=== PATIENT | female | born 2000 | race Hispanic/Latino ===

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

== ENCOUNTER 2019-03-09 22:28 | Emergency (ER) | payer OTHER ==
[2019-03-09 22:56] LABS: Bilirubin Negative (Negative); Blood, Urine Negative (Negative); Clarity Clear (Clear); Glucose, Urine (Dipstick) Normal (Negative); Leukocyte 75 Leu/uL (Negative); Nitrite Negative (Negative); Protein, Urine (Dipstick) Negative (Neg-Trace); RBC/HPF 0-3 HPF (0-3); Squamous Epithelial 0-3 HPF (0-3); Urobilinogen Normal mg/dL (Less than 2); WBC/HPF 0-3 HPF (0-3)
[2019-03-09 23:09] LABS: Bacteria/HPF Rare-Few HPF (None Seen)
== END 2019-03-09 23:20 | disposition home or self-care (01) ==
LOC: ERS 22:28
DX: O99.512 Diseases of the respiratory system complicating pregnancy, second trimester (principal); J10.1 Influenza due to other identified influenza virus with other respiratory manifestations; O24.912 Unspecified diabetes mellitus in pregnancy, second trimester; Z3A.14 14 weeks gestation of pregnancy
CPT/HCPCS: 81003; 81015; 87086; 87804; 99283

== ENCOUNTER 2019-04-17 09:20 | Outpatient (CLI) | payer OTHER ==
--- NOTE | 2019-04-17 10:22 | ULT ---
OB ultrasound: HISTORY: Size and dates. FINDINGS: A single live intrauterine gestation is seen with measurements corresponding to an estimated gestatio nal age of 20 weeks 0 days and JOSIAH at 09/04/2019. The estimated weight measures 322 g or 11 ounces (42% by Hadlock criteria). measurements as follows: BPD: 4.50 cm, 19 weeks 5 days HC: 17.68 cm, 20 weeks 2 days AC: 14.70 cm, 20 weeks 0 days FL: 3.17 cm, 19 weeks 6 days The placenta is posteriorly located without evidence of placenta previa. heart rate measures 15 8 beats per minute. Cervical length measures 6 cm. Amniotic fluid appears adequate. Three-vessel cord and four-chamber heart are not satisfactorily visualized. The cord insertion, kidneys, bladder, stomach, lateral ventricles, cerebellum, spine, loss/lips and upper and lower extremities are visualized without definite anomalies. IMPRESSION: Single live IUP of 20 weeks estimated gestational age and JOSIAH at 09/04/2019
== END 2019-04-17 09:21 | disposition home or self-care (01) ==
LOC: BICULT 09:20
PROVIDERS: ATTEND Family Medicine
DX: O09.92 Supervision of high risk pregnancy, unspecified, second trimester (principal); Z3A.20 20 weeks gestation of pregnancy
CPT/HCPCS: 76805

== ENCOUNTER 2019-07-04 17:48 | Day surgery (SDC) | payer OTHER ==
[2019-07-04 18:33] VITALS: BMI 37.9
[2019-07-04 18:39] VITALS: BP 104/56; TEMP 98.8
[2019-07-04] MEDS ORDERED: hydrALAZINE 20 MG/ML VIAL SLOW IVP PRN (18:49)
[2019-07-04 19:37] LABS: Bacteria/HPF None Seen HPF (None Seen); Bilirubin Negative (Negative); Blood, Urine Negative (Negative); Clarity Clear (Clear); Glucose, Urine (Dipstick) Normal (Negative); Leukocyte Negative Leu/uL (Negative); Nitrite Negative (Negative); Protein, Urine (Dipstick) Negative (Neg-Trace); RBC/HPF None Seen HPF (0-3); Squamous Epithelial None Seen HPF (0-3); Urobilinogen Normal mg/dL (Less than 2); WBC/HPF 0-3 HPF (0-3)
[2019-07-04 19:40] LABS: Urine Culture Reflex No No
--- NOTE | 2019-07-04 21:38 | PRG ---
DATE OF SERVICE: 07/04/2019 PRESENTING COMPLAINT: Pinkish urine or vaginal discharge uncertain at 28 weeks. HISTORY OF PRESENT ILLNESS: Ms. Miky Escobar is the 19-year-old 3, para 3, living 1, status post x1, status post vaginal delivery of 28-week twins . No antepartum record available on the unit. She reports several days of pinkish urine. She thinks it is most likely urine, although might be discharge. She denies cramps. She reports active fetus. She called Dr. Carter's office who told her to present to Labor and Delivery for further evaluation. 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 No antepartum record available. PAST MEDICAL HISTORY: Denies. PAST SURGICAL HISTORY: Denies. ALLERGIES: DENIES. MEDICATIONS: vitamins. SOCIAL HISTORY: Denies tobacco, alcohol, or IV drug abuse. FAMILY HISTORY: Noncontributory. REVIEW OF SYSTEMS: Noncontributory. PHYSICAL EXAMINATION: GENERAL: White female, in no acute distress. VITAL SIGNS: Temperature 98.8, pulse 82, respirations 18, blood pressure 122/72. HEENT: Within normal limits. LUNGS: Clear to auscultation bilaterally. HEART: Regular rate and rhythm. ABDOMEN: Soft and nontender. Fundal height 29 cm. FHTs 140s. Vulva without lesions. Vaginal exam deferred. VB-3 collected. Straight catheterization collected. No CVA tenderness noted. EXTREMITIES: Without clubbing, cyanosis, or edema. LABORATORY STUDIES: monitoring is carried out, which revealed no contractions. Positive accelerations, no decelerations. Baseline is 140s to 150s. VB-3 was negative for all tested conditions. Urinalysis was completely unremarkable and clean. IMPRESSION: Pinkish discharge of uncertain etiology. No evidence of infection, labor, or urinary tract infection. PLAN: Reassurance. Follow up with Raul as scheduled in first week of July. Job ID: [id number]
== END 2019-07-04 20:50 | disposition home or self-care (01) ==
LOC: L&D/OP 17:48
PROVIDERS: ATTEND Family Medicine
DX: O99.89 Other specified diseases and conditions complicating pregnancy, childbirth and the puerperium (principal); N89.8 Other specified noninflammatory disorders of vagina; O34.219 Maternal care for unspecified type scar from previous cesarean delivery; O09.293 Supervision of pregnancy with other poor reproductive or obstetric history, third trimester; Z3A.28 28 weeks gestation of pregnancy
CPT/HCPCS: 81001; 87480; 87510; 87660

== ENCOUNTER 2019-08-28 05:23 | Inpatient (IN) | payer OTHER ==
[2019-08-28] MEDS ORDERED: Ondansetron PF 4 MG/2 ML Vial IVP PRN ×3 (05:44→17:14)
[2019-08-28] MEDS ORDERED: Promethazine HCl 25 MG/ML VIAL IM PRN ×2 (05:44→14:51)
[2019-08-28] MEDS ORDERED: hydrALAZINE 20 MG/ML VIAL SLOW IVP PRN ×2 (05:44→17:14)
[2019-08-28 05:58] VITALS: BMI 42.0
[2019-08-28] MEDS ORDERED: CEFAZOLIN 2 GM in Premix Bag 1 BAG IVPB SCH ×2 (06:00→13:30)
[2019-08-28 06:21] LABS: Hemoglobin 10.7 g/dL (12.0-16.0); Mean Corpuscular HGB CONC 31.7 g/dL (32.0-36.0); Mean Corpuscular Hemoglobin 24.8 pg (25.0-35.0); Mean Corpuscular Volume 78.3 fL (78.0-98.0); Mean Platelet Volume 10.7 fL (7.4-10.4); Platelet Count 144 thou/uL (130-400); Red Blood Cell (RBC) Count 4.31 mill/uL (4.00-5.20); White Blood Cell (WBC) Count 9.6 thou/uL (4.8-10.8)
[2019-08-28] MEDS ORDERED: Famotidine/PF 20 mg/2ml Vial ONE (06:33)
[2019-08-28] MEDS ORDERED: Oxytocin 10 UNITS/ML VIAL ONE ×2 (06:53→14:54)
[2019-08-28] MEDS ORDERED: MORPHINE 5 MG/10 ML PF VIAL ONE (06:53)
[2019-08-28] MEDS: Lactated Ringer's 1,000 ML IV SCH ×3 (06:58→21:34)
[2019-08-28 06:59] LABS: Syphilis Antibody Nonreactive (Nonreactive); Syphilis Antibody Index 0.07 S/CO (<1.00 Non-Reactive)
[2019-08-28 07:00] LABS: HBSAg Index 0.16 S/CO (0-0.99); Hep B Surf Ag Non-Reactive S/CO (NonReactive)
[2019-08-28] MEDS ORDERED: Famotidine/PF 20 mg/2ml Vial SLOW IVP SCH (07:00)
[2019-08-28] MEDS ORDERED: PHENYLEPHRINE-NS 100 MCG/ML 10 ML SYRINGE ONE (12:00)
[2019-08-28] MEDS ORDERED: Metoclopramide HCl 10 MG/2 ML VIAL ONE (12:00)
[2019-08-28] MEDS ORDERED: Ondansetron PF 4 MG/2 ML Vial ONE (12:00)
[2019-08-28] MEDS ORDERED: EPHEDRINE 25 MG/5 ML SYRINGE ONE (12:00)
[2019-08-28] MEDS ORDERED: Ketorolac Tromethamine 30 MG/ML VIAL ONE (12:00)
[2019-08-28] MEDS ORDERED: Dexamethasone 20 MG/5 ML VIAL ONE (12:00)
[2019-08-28] MEDS ORDERED: Naloxone HCl 0.4 mg/ml Vial IV PRN (14:51)
[2019-08-28] MEDS ORDERED: Ondansetron HCl/PF 4 MG/2 ML Vial IVP PRN (14:51)
[2019-08-28] MEDS ORDERED: Meperidine HCl/PF 25 MG/ML VIAL SLOW IVP PRN (14:51)
[2019-08-28] MEDS ORDERED: Promethazine HCl 25 MG SUPP PR PRN (14:51)
[2019-08-28] MEDS ORDERED: L&D-Morphine 4 MG/ML VIAL SLOW IVP PRN (14:51)
[2019-08-28] MEDS ORDERED: HYDROmorphone 2 MG/ML VIAL SLOW IVP PRN (14:51)
[2019-08-28] MEDS ORDERED: Naloxone HCl 0.4 mg/ml Vial IVP PRN ×2 (14:51)
[2019-08-28] MEDS ORDERED: diphenhydrAMINE 50 MG/ML VIAL IVP PRN (14:51)
[2019-08-28] MEDS ORDERED: Communication Order-Pharmacy FS SCH (15:00)
--- NOTE | 2019-08-28 15:28 | PDOC.OPDEL ---
OB Operative/Delivery Note - Additional Findings/Plan Compilations/Other Findings: Procedure Note Date of Procedure: 08/28/19 Resident Surgeon: Dr. Brandyn Smith Attending Surgeon: Dr. Walt Carter Procedure: Primary low transverse caesarean section Preoperative Diagnosis: 1)Term intrauterine 2) Repeat C/s Postoperative Diagnosis: 1)same as above Anesthesia: spinal Indications: The patient is a 19 year old female at 39 weeks presenting for scheduled repeat c/s. Procedure in Detail: After risks, benefits, and alternatives were explained to the patient, she gave informed consent. Pre-operative antibiotics included Cefazolin 2 gram IV. The patient was taken to the operating room and epidural anesthesia was found to be sufficient. She was placed in the supine position with a left tilt and prepped and draped in usual sterile fashion. A Pfannenstiel incision was made with a scalpel and carried down to the level of the fascia which was sharply nicked. The fascial cut was extended bilaterally with Causey scissors. The inferior and superior edges of the cut fascial edges were elevated with Georgie clamps and the underlying rectus muscles were sharply and bluntly dissected free. The recti were divided digitally and retracted manually. The peritoneum was entered bluntly and retracted manually. Bladder blade was placed. A low transverse score was made with the scalpel and the uterus was entered in the midline with the scalpel. Clear fluid was seen. The hysterotomy was extended manually. The infant was noted to be vertex and was easily delivered by fundal pressure. Mouth and nares were bulb suctioned. Cord clamped and cut and grossly normal female infant was handed to waiting nurse. Cord blood was obtained. Placenta was manually extracted, found to be intact with 3 vessel cord and discarded. The uterus was externalized and the endometrium was curetted with a dry lap. The bladder blade was replaced and the uterus was closed with a running locking 0-Vicryl. 2 figure of eight knots of 0- Vicryl were placed after this. Following this hemostasis was noted. The abdomen was irrigated with saline and suctioned free of clots. The uterus was internalized and the hysterotomy was again noted to be hemostatic. The peritoneum was closed using 3-0 vicryl in a running non-locking fashion. The fascia was closed with a running non-locking 0-PDS suture. The subcutaneous tissue was irrigated and there were no bleeders. The subcutaneous layer was approximated with 3 simple interrupted knots of 3-0 chromic. The skin was approximated with diana and a wound vac was put in place. All counts were correct. The patient tolerated the procedure well and was taken to the recovery room in stable condition. QBL: pending at this time. Complications: None Specimens: Cord blood sent to lab for blood type Findings: Grossly normal male infant. Grossly normal placenta with 3 vessel cord discarded. Drains: Barclay to gravity draining clear urine
[2019-08-28] MEDS ORDERED: Naloxone HCl 0.4 mg/ml Vial ONE (16:50)
[2019-08-28] MEDS ORDERED: HYDROcodone/Acetaminophen 5/325 mg Tablet PO PRN ×2 (17:14)
[2019-08-28] MEDS ORDERED: diphenhydrAMINE 25 MG CAP PO PRN (17:14)
[2019-08-28] MEDS ORDERED: Simethicone Chewable 80 MG TAB PO PRN (17:14)
[2019-08-28] MEDS ORDERED: Meperidine HCl/PF 25 MG/ML VIAL IM PRN (17:14)
[2019-08-28] MEDS: Ketorolac Tromethamine 30 MG/ML VIAL IVP SCH (18:39)
[2019-08-28] MEDS: Docusate Calcium (SURFAK) 240 MG CAP PO SCH (21:34)
[2019-08-28] MEDS ORDERED: Ketorolac Tromethamine 30 MG/ML VIAL IVP PRN (22:00)
[2019-08-28] MEDS: Ferrous Sulfate 325 MG TAB PO SCH (22:12)
[2019-08-29] MEDS: Ketorolac Tromethamine 30 MG/ML VIAL IVP SCH ×2 (00:03→05:31)
[2019-08-29] MEDS: Ferrous Sulfate 325 MG TAB PO SCH ×2 (07:17→22:12)
[2019-08-29 07:18] LABS: Hemoglobin 10.3 g/dL (12.0-16.0); Mean Corpuscular HGB CONC 32.4 g/dL (32.0-36.0); Mean Corpuscular Hemoglobin 25.6 pg (25.0-35.0); Mean Platelet Volume 10.1 fL (7.4-10.4); Platelet Count 151 thou/uL (130-400); RBC Distribution Width 14.6 % (11.5-14.5); Red Blood Cell (RBC) Count 4.04 mill/uL (4.00-5.20); White Blood Cell (WBC) Count 16.8 thou/uL (4.8-10.8)
[2019-08-29] MEDS: Docusate Calcium (SURFAK) 240 MG CAP PO SCH ×2 (08:22→22:11)
[2019-08-29] MEDS: Ibuprofen 800 MG TAB PO SCH ×2 (13:45→22:11)
[2019-08-29] MEDS ORDERED: Adacel (T-DAP) 0.5 ML SYRINGE IM ONE (17:14)
[2019-08-30] MEDS: Ibuprofen 800 MG TAB PO SCH ×2 (05:45→14:32)
[2019-08-30] MEDS: Ferrous Sulfate 325 MG TAB PO SCH (08:14)
[2019-08-30] MEDS: Docusate Calcium (SURFAK) 240 MG CAP PO SCH (08:28)
[2019-08-30 11:55] VITALS: BP 131/62; TEMP 98.3
== END 2019-08-30 16:40 | disposition home or self-care (01) | DRG 788 ==
LOC: L&D 05:23 → 3SE 17:52
PROVIDERS: ADMIT Family Medicine; ATTEND Family Medicine
PROC: 10D00Z1 Extraction of Products of Conception, Low, Open Approach (ICD-10-PCS; principal; 2019-08-28)
DX: O34.211 Maternal care for low transverse scar from previous cesarean delivery (principal); Z3A.39 39 weeks gestation of pregnancy; Z37.0 Single live birth
CPT/HCPCS: 36415; 51702; 85027; 86780; 86850; 86900; 86901; 87340; J0690; J1100; J1885; J2274; J2310; J2405; J2590; J2765; S0028

== ENCOUNTER 2019-09-11 20:14 | Emergency (ER) | payer OTHER ==
[2019-09-11] MEDS ORDERED: Ibuprofen 800 MG TAB ONE (20:42)
== END 2019-09-11 21:22 | disposition home or self-care (01) ==
LOC: ERS 20:14
DX: O90.89 Other complications of the puerperium, not elsewhere classified (principal); N64.4 Mastodynia
CPT/HCPCS: 99283